=== PATIENT | female | born 1960 | race Two or more races ===

== ENCOUNTER 2019-09-19 09:45 | Inpatient (IN) | payer OTHER ==
[~2019-09-19] VITALS: Ht 165.1 cm; Wt 89.4 kg
[2019-09-19] MEDS ORDERED: CLONAZEPAM1 MG PO (14:16)
[2019-09-19] MEDS ORDERED: LEXAPRO5 MG PO (14:17)
[2019-09-19] MEDS ORDERED: METFORMIN HCL500 M3 PO (14:17)
[2019-09-22] MEDS ORDERED: ESCITALOPRAM OX10 MG (09:25)
[2019-09-25] MEDS ORDERED: PRILOSEC OTC20 MG PO (10:27)
[2019-09-25] MEDS ORDERED: INTESTINEX680 M1 PO (10:27)
[2019-09-25] MEDS ORDERED: PERCOCET 5-3251 EACH PO (10:27)
== END 2019-09-25 12:04 | disposition home or self-care (01) | DRG 331 ==
LOC: O/R 09-22 06:45 → SURH 09-22 06:45 → O/R 09-22 09:45 → SURH 09-22 09:45
PROVIDERS: ADMIT Surgery
PROC: 0DBU4ZZ Excision of Omentum, Percutaneous Endoscopic Approach (ICD-10-PCS; 2019-09-22)
PROC: 07BC4ZX Excision of Pelvis Lymphatic, Percutaneous Endoscopic Approach, Diagnostic (ICD-10-PCS; 2019-09-22)
PROC: 0DTF4ZZ Resection of Right Large Intestine, Percutaneous Endoscopic Approach (ICD-10-PCS; principal; 2019-09-22 14:30)
DX: D12.0 Benign neoplasm of cecum (principal)